=== PATIENT | female | born 1965 | race Caucasian/White ===

== ENCOUNTER 2017-03-25 13:07 | Emergency (ER) | payer BC ==
[2017-03-25] MEDS ORDERED: hydrOXYzine PAMOATE 25 MG CAPSULE PO ONE (13:33)
[2017-03-25] MEDS ORDERED: hydrOXYzine PAMOATE 25 MG CAPSULE ONE (13:42)
--- NOTE | 2017-03-25 13:55 | ERNOTE ---
Psychological HPI - Date Date of Service: 03/25/17 - General Chief Complaint: Anxiety Source: Reports: patient Exam Limitations: Reports: no limitations - Immun/Allergies/Home Medications Allergies/Adverse Reactions: Allergies No Known Allergies Allergy (Unverified 03/25/17 13:20) Home Medications: HOME MEDICATIONS Hydrochlorothiazide [Hydrodiuril] 25 mg PO DAILY 03/25/17 [Last Taken Unknown] Hydroxyzine HCl 25 mg PO TID PRN #20 tablet 03/25/17 [Last Taken Unknown] - History of Present Illness Narrative: Patient presents to the ED for feeling anxious. She relates she has a history of anxiety and was treated when her mother was dying many years ago but has not received any recent treatment. She relates she is having significant stress with her job and needs a break from her job. She relates numerous problems at work and is so busy at work that she cannot get out to do the things that make her feel better. She feels chronic anxiety anbd feels like she gets panic attacks. She strongly denies any suicidal ideation or homicidal ideation. Her agrees she is not suicidal or homicidal. She denies any acute physical complaints otherwise. She has never been hospitalized for psychiatric reasons or seen a psychiatrist. Time Seen by Provider: 03/25/17 13:25 Arrived by: Reports: private car Onset/duration: Reports: gradual onset Intent: Reports: no prior thoughts-suicide. Denies: suicide, prior thoughts of suicide Situational Problems: Reports: work Associated Symptoms: Denies: suicidal thoughts Prior Treament: Denies: recently seen Review of Systems - Review of Systems Constitutional: Absent: fever Respiratory: Absent: shortness of breath Cardiology: Absent: chest pain Gastrointestinal/Abdominal: Absent: abdominal pain Genitourinary: Absent: dysuria Neurological: Present: anxiety. Absent: weakness - Patient's Past Medical History Patient History - Medical: Anxiety Patient History - Cardiac/Respiratory: Hypertension, Hyperlipidemia Patient History - Cancer: No Hx of Cancer Patient History - Surgical Procedures: Cholecystectomy Patient History - Other: None - Social History Living Situations: home - Immunizations Hx Pneumococcal Vaccination: No History of Influenza Vaccine: No Physical Exam - Physical Exam General Appearance: Present: alert, no apparent distress, other - No SI or HI. Eye Exam: Normal inspection: bilateral, PERRL: bilateral Ears, Nose, Throat: Present: normal ENT inspection Neck: Present: normal inspection Respiratory: Present: no respiratory distress, normal breath sounds, no accessory muscle use, lungs clear Cardiovascular/Chest: Present: regular rate, rhythm Gastrointestinal/Abdominal: Present: normal bowel sounds, nontender, soft Extremity Exam: Present: normal inspection Neurological Exam: Present: alert, oriented, normal mood/affect, no motor/ sensory deficits, other - Normal eye contact, no SI or HI. Good insight and answers questions appropriately. Skin Exam: Present: normal color, warm/dry ED Progress - Vital Signs Patient's Vital Signs:: I have reviewed the patient's vital signs. Vital Signs: Vital Signs 03/25/17 03/25/17 13:10 13:28 Temperature 36.4 C L Pulse Rate 76 70 Respiratory 18 16 Rate Blood Pressure 196/94 O2 Sat by Pulse 100 99 Oximetry - Progress/Reassessment Chief Complaint: Anxiety Progress:: Improved Progress Note-Subjective: 03/25/17 14:05 Patient felt improved with hydroxyzine. She wishes to go home. She has no SI or HI. She contracts for safety and SO agrees she is not suicidal and will watch her. Have appt April 03, will give her off work until then given her work stress. I do not feel labs needed at this time. I discussed warning signs and reasons to return as well as the need for close f/u. Departure Clinical Impression: Anxiety - Departure Disposition: Home self-care Condition: Stable Instructions: Panic Attacks, [id number] Additional Instructions: A work note has been given. You need to follow-up as directed. Return here immediately if you develop thoughts of harming yourself or others or if your condition worsens or changes in any way. Prescriptions: Hydroxyzine HCl 25 mg PO TID PRN #20 tablet PRN Reason: Anxiety
[2017-03-25 14:28] VITALS: BP 162/82
--- OUTSIDE RECORDS SUMMARY | 2017-03-25 14:32 | XMS REPORT | Continuity of Care Document ---
:1965 Author Organization [facility] [place] [address] Care Team Providers Name Role Phone Chano Simmons Primary Care Provider [phone] Source Comments This disclosure is being made pursuant to the [employer] program and maynot contain all information available regarding this patient.[facility] Active Allergies and Adverse Reactions Not on File Current Medications Be aware that medications may not be up to date as of this document. Alwaysverify current medications with the patient. Not on file Active Problems Not on file Social History Tobacco Use Types Packs/Day Years Used Date Never Assessed Plan of Care Health Maintenance Due Date Last Done Comments Retired-Pertussis Vaccine Adult 1985 Retired-Tetanus Vaccine Adult 1985 Pap Smear 1987 Mammogram 2006 Retired-INFLUENZA VACCINE 07/31/2015 Results from Last 3 Months Not on file
== END 2017-03-25 14:12 | disposition home or self-care (01) ==
LOC: ER 13:07
DX: F41.9 Anxiety disorder, unspecified (principal); I10 Essential (primary) hypertension